=== PATIENT | female | born 2000 | race Asian ===

== ENCOUNTER 2024-03-17 14:03 | Emergency (ER) | payer SELFPAY ==
[~2024-03-17] VITALS: Ht 170.2 cm; Wt 82.8 kg
[2024-03-17 14:06] VITALS: BP 127/71; TEMP 98.8; O2SAT 99
[2024-03-17] MEDS ORDERED: PREN1CHW6 PO (14:11)
[2024-03-17 18:29] LABS: MONO SCRN NEGATIVE (NEGATIVE)
[2024-03-17] MEDS ORDERED: AMOX500C PO (18:41)
== END 2024-03-17 18:51 | disposition home or self-care (01) ==
LOC: M ED 14:03
DX: J02.9 Acute pharyngitis, unspecified (principal); Z79.2 Long term (current) use of antibiotics; Z79.810 Long term (current) use of selective estrogen receptor modulators (SERMs)

== ENCOUNTER 2024-07-02 11:35 | Emergency (ER) | payer OTHER, SELFPAY ==
[~2024-07-02] VITALS: Ht 170.2 cm; Wt 85.3 kg
[~2024-07-02 11:35] MED LIST: AMOX500C PO; PREN1CHW6 PO
[2024-07-02 11:37] VITALS: BP 100/55; TEMP 98.1; O2SAT 99
[2024-07-02 12:43] LABS: HCG, SERUM QUALITATIVE POSITIVE (NEGATIVE)
[2024-07-02 12:59] LABS: HCG, SERUM QUANTITATIVE 3064.1 MIU/ML (<4.2)
== END 2024-07-02 14:01 | disposition home or self-care (01) ==
LOC: M ED 11:35
DX: Z32.01 Encounter for pregnancy test, result positive (principal)

== ENCOUNTER → 2024-07-27 | Outpatient (CLI) | payer OTHER ==
[2024-07-27 15:45] LABS: HEMATOCRIT 35.4 % (36.0-47.0); HEMOGLOBIN 11.7 g/dl (12.0-15.5); MEAN CORPUSCULAR HEMOGLOBIN 30.3 pg (27.0-33.0); MEAN CORPUSCULAR HGB CONC 33.1 g/dl (32.0-36.5); MEAN CORPUSCULAR VOLUME 91.7 fl (80.0-96.0); PLATELET COUNT, AUTOMATED 224 10^3/uL (150-450); RED BLOOD COUNT 3.86 10^6/uL (4.00-5.40); WHITE BLOOD COUNT 8.1 10^3/uL (4.0-10.0)
[2024-07-27 16:22] LABS: HIV 1&2 SCREEN NEGATIVE (NEGATIVE)
[2024-07-27 16:30] LABS: HEPATITIS C VIRUS ABY INDEX 0.07 INDEX (<0.8)
[2024-07-27 16:59] LABS: Trichomonas vaginalis (AMP) NOT DETECTED (NEGATIVE)
[2024-07-27 17:23] LABS: GC DNA AMPLIFICATION NEGATIVE (NEGATIVE)
== END ==
LOC: M PLALAB 12:06
PROVIDERS: ATTEND Nurse Practitioner Family
DX: Z34.80 Encounter for supervision of other normal pregnancy, unspecified trimester (principal)

== ENCOUNTER → 2024-09-17 | Outpatient (CLI) | payer OTHER | LOC: M WHC 14:48 | PROVIDERS: ATTEND Nurse Practitioner Family | DX: Z34.80 Encounter for supervision of other normal pregnancy, unspecified trimester (principal) ==

== ENCOUNTER 2024-10-06 21:36 | Emergency (ER) | payer OTHER | END 2024-10-06 21:57 | disposition left against medical advice (07) | LOC: M ED 21:36 | DX: Z53.21 Procedure and treatment not carried out due to patient leaving prior to being seen by health care provider (principal) ==

== ENCOUNTER 2024-10-06 21:45 | Outpatient (CLI) | payer OTHER ==
[~2024-10-06] VITALS: Ht 170.2 cm; Wt 96.4 kg
[2024-10-06 21:58] VITALS: BP 120/73; O2SAT 97
[2024-10-06] MEDS ORDERED: HOME MED LIST COMPLETE! XX SCH (22:05)
[2024-10-06 23:28] VITALS: BP 114/68
== END 2024-10-06 23:35 | disposition home or self-care (01) ==
LOC: M LDO 21:45
PROVIDERS: ATTEND Obstetrics & Gynecology
DX: O99.343 Other mental disorders complicating pregnancy, third trimester (principal); O26.893 Other specified pregnancy related conditions, third trimester; O09.293 Supervision of pregnancy with other poor reproductive or obstetric history, third trimester; F41.9 Anxiety disorder, unspecified; F32.A Depression, unspecified; R25.2 Cramp and spasm; Z86.19 Personal history of other infectious and parasitic diseases; Z3A.36 36 weeks gestation of pregnancy; Z36.85 Encounter for antenatal screening for Streptococcus B
CPT/HCPCS: 59025; 87081; G0463

== ENCOUNTER → 2024-10-06 | Outpatient (REF) | payer OTHER | LOC: M PLALAB 11:41 | PROVIDERS: ATTEND Advanced Practice Midwife | DX: Z34.83 Encounter for supervision of other normal pregnancy, third trimester (principal) ==

== ENCOUNTER 2024-10-23 10:59 | Inpatient (IN) | payer OTHER ==
[2024-10-23] VITALS (8 sets, daily range): BP systolic 88–121; BP diastolic 53–74
[~2024-10-23] VITALS: Ht 170.2 cm; Wt 97.3 kg
[2024-10-23] MEDS ORDERED: METHYLERGONOVINE MALEATE 0.2 MG/ML 1 ML VIAL IM PRN (11:25)
[2024-10-23] MEDS ORDERED: TRANEXAMIC ACID INJection 1,000 MG in NS 100 ML IV PRN (11:25)
[2024-10-23] MEDS ORDERED: HOME MED LIST COMPLETE! XX SCH (11:25)
[2024-10-23] MEDS ORDERED: LIDOCAINE 1% MDV 20 ML VIAL INFIL PRN (11:25)
[2024-10-23] MEDS ORDERED: CARBOPROST TROMETHAMINE 250 MCG/ML AMP IM PRN (11:25)
[2024-10-23] MEDS ORDERED: OXYTOCIN DRIP 30 UNITS in IV 1 EA IV PRN (11:25)
[2024-10-23 12:02] LABS: PLATELET COUNT, AUTOMATED 168 10^3/uL (150-450)
[2024-10-23] MEDS: miSOPROStol 50 MCG 1/2 TABLET PO ONE (12:36)
[2024-10-23 13:01] LABS: HIV 1&2 SCREEN NEGATIVE (NEGATIVE)
[2024-10-23 13:09] LABS: HEPATITIS C VIRUS ABY INDEX < 0.02 INDEX (<0.8)
[2024-10-23] MEDS: miSOPROStol 50 MCG 1/2 TABLET PO SCH (16:36)
[2024-10-24] VITALS (39 sets, daily range): BP systolic 84–138; BP diastolic 51–82; O2SAT 97
[2024-10-24] MEDS ORDERED: NALOXONE INJ 0.4 MG/1 ML VIAL IV PRN (09:10)
[2024-10-24] MEDS ORDERED: diphenhydrAMINE 50 MG/ML VIAL IV PRN (09:10)
[2024-10-24] MEDS ORDERED: EPIDURAL/PCA KEYS XX PRN (09:10)
[2024-10-24] MEDS ORDERED: LR 500 ML IV PRN (09:10)
[2024-10-24] MEDS: OXYTOCIN DRIP 30 UNITS in IV 1 EA IV SCH (10:36)
[2024-10-24] MEDS: LACTATED RINGER'S 1000 ML IV STA (10:36)
[2024-10-24] MEDS: LR 1,000 ML IV SCH (10:36)
[2024-10-24] MEDS: FENTANYL/ROPIVACAINE/NACL BAG 100 ML EPIDURAL SCH (10:38)
[2024-10-24] MEDS: ONDANSETRON 4MG 2ML VIAL IV PRN (13:42)
[2024-10-24] MEDS ORDERED: METHYLERGONOVINE MALEATE 0.2 MG TAB PO PRN (16:10)
[2024-10-24] MEDS ORDERED: DOCUSATE SODIUM 100 MG CAPSULE PO PRN (16:10)
[2024-10-24] MEDS ORDERED: RHOGAM 300MCG (1500IU) INJ IM SCH (16:10)
[2024-10-24] MEDS ORDERED: DIBUCAINE 1% OINTMENT 30 GM TOP PRN (16:10)
[2024-10-24] MEDS ORDERED: MOM 30 ML SUSPENSION UDC PO PRN (16:10)
[2024-10-24] MEDS: ACETAMINOPHEN 500 MG TAB PO PRN (20:32)
[2024-10-25 06:00] VITALS: BP 99/60; O2SAT 96
[2024-10-25] MEDS: PRENATAL VITAMINS CHEWABLE TABLET PO SCH (10:00)
[2024-10-25] MEDS: IBUPROFEN 800 MG TAB PO PRN (10:01)
[2024-10-25] MEDS ORDERED: ACET-683 PO (12:51)
[2024-10-25] MEDS ORDERED: IBUP80TA PO (12:51)
[2024-10-26] MEDS ORDERED: MEASLES,MUMPS,RUBELLA VACCINE INJ (MMR-II) SC.IMMUN ONE (09:00)
== END 2024-10-25 17:15 | disposition home or self-care (01) | DRG 807 ==
LOC: M LDI 10:59 → M OBS 10-24 18:34
PROVIDERS: ADMIT Advanced Practice Midwife; ATTEND Obstetrics & Gynecology
PROC: 10E0XZZ Delivery of Products of Conception, External Approach (ICD-10-PCS; principal; 2024-10-24)
PROC: 3E0P7GC Introduction of Other Therapeutic Substance into Female Reproductive, Via Natural or Artificial Opening (ICD-10-PCS; 2024-10-24)
DX: O80 Encounter for full-term uncomplicated delivery (principal); Z37.0 Single live birth; Z3A.39 39 weeks gestation of pregnancy

== ENCOUNTER → 2025-01-04 | Outpatient (REF) | payer OTHER ==
[~2025-01-04] MED LIST changes: +ACET-683 PO; +IBUP80TA PO
== END ==
LOC: M PLALAB 10:08
PROVIDERS: ATTEND Obstetrics & Gynecology
DX: Z12.4 Encounter for screening for malignant neoplasm of cervix (principal)

== ENCOUNTER 2025-01-18 21:40 | Emergency (ER) | payer OTHER ==
[~2025-01-18] VITALS: Ht 170.2 cm; Wt 96.8 kg
[2025-01-18 21:42] VITALS: BP 115/68; TEMP 97.9; O2SAT 98
[2025-01-18 22:26] LABS: BASO # 0.1 10^3/uL (0.0-0.2); BASO % 1.3 % (0.0-1.0); EOS # 0.3 10^3/uL (0.0-0.5); EOS % 3.4 % (0.0-3.0); LYMPH # 2.5 10^3/uL (1.5-5.0); LYMPH % 31.8 % (24.0-44.0); MONO # 0.6 10^3/uL (0.0-0.8); MONO % 8.0 % (2.0-8.0); NEUTROPHILS # 4.3 10^3/uL (1.5-8.5); NEUTROPHILS % 55.2 % (36.0-66.0); PLATELET COUNT, AUTOMATED 234 10^3/uL (150-450)
[2025-01-18 22:59] LABS: ALT/SGPT 28 U/L (7.0-40); AST/SGOT 37 U/L (<34); C REACTIVE PROTEIN QUANTITATIV 1.68 MG/DL (<1.0); CALCIUM LEVEL 8.4 MG/DL (8.5-10.1); CARBON DIOXIDE LEVEL 28 MMOL/L (20-31); CHLORIDE LEVEL 107 MMOL/L (98-107); CREATININE FOR GFR 0.76 MG/DL (0.55-1.30); GLOMERULAR FILTRATION RATE > 90.0 (>60); POTASSIUM SERUM 4.3 MMOL/L (3.5-5.1); SODIUM LEVEL 144 MMOL/L (136-145)
== END 2025-01-19 03:05 | disposition home or self-care (01) ==
LOC: M ED 21:40
DX: R22.42 Localized swelling, mass and lump, left lower limb (principal); Z79.1 Long term (current) use of non-steroidal anti-inflammatories (NSAID)